=== PATIENT | female | born 1990 | race Caucasian/White ===

== ENCOUNTER 2021-04-22 11:14 | Emergency (ER) | payer MEDICAID, OTHER ==
[~2021-04-22] VITALS: Ht 167.6 cm; Wt 90.0 kg
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
[2021-04-22] MEDS ORDERED: HYDR-2155 PO (12:54)
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
[2021-04-22] MEDS ORDERED: IBUPROFEN 600 MG TABLET. PO ONE (13:00)
[2021-04-22 13:15] VITALS: BP 107/61
== END 2021-04-22 13:20 | disposition home or self-care (01) ==
LOC: ER 11:14
DX: M54.2 Cervicalgia (principal); M25.512 Pain in left shoulder; R07.81 Pleurodynia; J45.909 Unspecified asthma, uncomplicated; V86.99XA Unspecified occupant of other special all-terrain or other off-road motor vehicle injured in nontraffic accident, initial encounter; Y93.89 Activity, other specified; Y92.89 Other specified places as the place of occurrence of the external cause; Y99.8 Other external cause status
CPT/HCPCS: 70450; 71110; 72125; 73030; 99285